=== PATIENT | male | born 1940 | race African-American/Black ===

== ENCOUNTER → 2016-05-02 | Outpatient (REF) | payer MEDICARE ==
[2016-05-02 18:11] LABS: TOTAL PROTEIN 6.9 GM/DL (6.4-8.2)
[2016-05-03 11:26] LABS: ALBUMIN 3.71 GM/DL (3.29-5.55); ALBUMIN % 53.7 % (55.8-66.1); GAMMA GLOBULIN % 17.3 % (11.1-18.8)
== END ==
LOC: M LAB REF 16:51
DX: N25.81 Secondary hyperparathyroidism of renal origin (principal); D47.2 Monoclonal gammopathy

== ENCOUNTER 2016-07-31 21:58 | Emergency (ER) | payer MEDICARE ==
[~2016-07-31] VITALS: Ht 162.6 cm; Wt 69.4 kg
[2016-07-31] MEDS ORDERED: PEGSOL (22:24)
[2016-07-31] MEDS ORDERED: METO25TA74 (22:24)
[2016-07-31] MEDS ORDERED: PRED20TA (22:24)
[2016-07-31] MEDS ORDERED: AMLO5TAB2 (22:24)
[2016-07-31] MEDS ORDERED: CLON-412 (22:24)
[2016-07-31] MEDS ORDERED: HYDR10TAB (22:24)
[2016-07-31] MEDS ORDERED: HYDR-4266 (22:24)
[2016-07-31] MEDS ORDERED: RANI150T (22:24)
[2016-07-31] MEDS ORDERED: SPIR25TA2 (22:24)
[2016-07-31] MEDS ORDERED: ISOS60TA2 (22:24)
[2016-07-31] MEDS ORDERED: ATOR40TA (22:24)
[2016-07-31] MEDS ORDERED: hydrALAZINE INJ 20 MG/ML VIAL IV ONE (23:00)
[2016-07-31 23:07] LABS: BASO % 0.4 % (0.0-1.0); EOS # 0.2 K/mm3 (0.0-0.50); EOS % 2.2 % (0.0-3.0); LARGE UNSTAINED CELL # 0.3 K/mm3 (0.0-0.4); LYMPH # 2.8 K/mm3 (1.5-4.5); LYMPH % 25.3 % (24.0-44.0); MEAN CORPUSCULAR HEMOGLOBIN 31.2 pg (27.0-33.0); MEAN CORPUSCULAR HGB CONC 33.3 g/dl (32.0-36.5); MEAN CORPUSCULAR VOLUME 93.5 fl (80.0-96.0); MONO # 1.2 K/mm3 (0.0-0.8); MONO % 11.8 % (0.0-5.0); NEUTROPHILS # 5.6 K/mm3 (1.8-7.7); NEUTROPHILS % 57.2 % (36.0-66.0); PLATELET COUNT, AUTOMATED 185 k/mm3 (150-450); WHITE BLOOD COUNT 9.8 K/mm3 (4.0-10.0)
[2016-07-31 23:41] LABS: ANION GAP 6 MEQ/L (8-16); BLOOD UREA NITROGEN 48 MG/DL (7-18); CALCIUM LEVEL 8.3 MG/DL (8.8-10.2); CARBON DIOXIDE LEVEL 27 MEQ/L (21-32); CHLORIDE LEVEL 107 MEQ/L (98-107); CREATININE FOR GFR 2.96 MG/DL (0.70-1.30); GLOMERULAR FILTRATION RATE 22.2 (>42); GLUCOSE, FASTING 97 MG/DL (83-110); POTASSIUM SERUM 4.5 MEQ/L (3.5-5.1); SODIUM LEVEL 140 MEQ/L (136-145)
[2016-08-01 01:55] VITALS: BP 174/79
--- NOTE | 2016-08-01 21:01 | ECGEPIP ---
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
== END 2016-08-01 01:59 | disposition home or self-care (01) ==
LOC: M ED 23:33
DX: I10 Essential (primary) hypertension (principal); I25.10 Atherosclerotic heart disease of native coronary artery without angina pectoris; N28.9 Disorder of kidney and ureter, unspecified; Z79.899 Other long term (current) drug therapy

== ENCOUNTER → 2016-09-27 | Outpatient (CLI) | payer MEDICARE ==
[~2016-09-27] VITALS: Ht 162.6 cm; Wt 68.5 kg
[~2016-09-27] MED LIST: AMLO5TAB2 PO; ATOR40TA75 PO; CLON-412 PO; HYDR-3910 PO; HYDR10TAB; ISOS60TA2 PO; METO1TAB32 PO; NS 1,000 ML IV ONE; PEGSOL; PRED20TA; PROPOFOL 200 MG/20 ML VIAL As Ordered ONE; RANI150T PO; SPIR25TA2
--- NOTE | 2016-09-27 08:36 | ROOR ---
Patient Name: Geena Cherry Procedure Date: 09/27/2016 8:12 AM Date of : 1940 Age: 75 Room: [facility] Gender: Male Note Status: Finalized Procedure: Colonoscopy Indications: High risk colon cancer surveillance: Personal history of colonic polyps, Last colonoscopy: June 2013 Providers: Vladimir LONG MD Referring MD: BERNY ELIZALDE JR, MD Requesting Provider: Medicines: Monitored Anesthesia Care Complications: No immediate complications. Procedure: Pre-Anesthesia Assessment: - The heart rate, respiratory rate, oxygen saturations, blood pressure, adequacy of pulmonary ventilation, and response to care were monitored throughout the procedure. The Colonoscope was introduced through the anus and advanced to the cecum, identified by appendiceal orifice and ileocecal valve. The colonoscopy was performed without difficulty. The patient tolerated the procedure well. The quality of the bowel preparation was fair. Findings: The perianal and digital rectal examinations were normal. Multiple small and large-mouthed diverticula were found in the sigmoid colon. There was narrowing of the colon in association with the diverticular opening. Internal hemorrhoids were found during retroflexion. The hemorrhoids were medium-sized. (EXAM: Complete, PREP: Suboptimal) Impression: - (EXAM: Complete, PREP: Suboptimal/fair) - Moderate diverticulosis in the sigmoid colon. - Internal hemorrhoids. - Colon exam was otherwise normal. - No specimens collected. Recommendation: - Repeat colonoscopy in 5 years for adenoma surveillance. Vladimir Long MD Vladimir OLNG MD 09/27/2016 8:35:56 AM This report has been signed electronically. Number of Addenda: 0 Note Initiated On: 09/27/2016 8:12 AM Estimated Blood Loss: Estimated blood loss: none.
[2016-09-27 09:00] VITALS: BP 154/74
== END | disposition home or self-care (01) ==
LOC: M OPP 07:16
PROVIDERS: ATTEND Internal Medicine Gastroenterology
DX: Z12.11 Encounter for screening for malignant neoplasm of colon (principal); K57.30 Diverticulosis of large intestine without perforation or abscess without bleeding; K64.8 Other hemorrhoids; Z86.010 Personal history of colon polyps; I12.9 Hypertensive chronic kidney disease with stage 1 through stage 4 chronic kidney disease, or unspecified chronic kidney disease; E78.5 Hyperlipidemia, unspecified; R12 Heartburn; K21.9 Gastro-esophageal reflux disease without esophagitis; M19.90 Unspecified osteoarthritis, unspecified site; M54.9 Dorsalgia, unspecified; J45.909 Unspecified asthma, uncomplicated; N18.4 Chronic kidney disease, stage 4 (severe); Z95.1 Presence of aortocoronary bypass graft; Z87.891 Personal history of nicotine dependence; Z79.899 Other long term (current) drug therapy; Z79.82 Long term (current) use of aspirin; Z80.9 Family history of malignant neoplasm, unspecified

== ENCOUNTER → 2017-04-21 | Outpatient (REF) | payer MEDICARE | LOC: M LAB REF 17:05 | DX: R31.29 Other microscopic hematuria (principal) | CPT/HCPCS: 88108 ==

== ENCOUNTER → 2017-05-22 | Outpatient (REF) | payer MEDICARE ==
[2017-05-22 19:45] LABS: URIC ACID 12.2 MG/DL (3.5-7.2)
== END ==
LOC: M LAB REF 17:22
DX: M10.9 Gout, unspecified (principal)
CPT/HCPCS: 84550

== ENCOUNTER → 2017-09-18 | Outpatient (REF) | payer MEDICARE ==
[2017-09-18 18:38] LABS: PTH INTACT 35.9 PG/ML (18.5-88.0)
== END ==
LOC: M LAB REF 18:03
DX: N25.81 Secondary hyperparathyroidism of renal origin (principal)
CPT/HCPCS: 83970

== ENCOUNTER 2017-09-21 07:12 | Day surgery (SDC) | payer MEDICARE ==
[2017-09-18] MEDS: POVIDONE-IODINE 5% OPHTH PREP SOL 30ML As Ordered (08:53)
[2017-09-21] MEDS ORDERED: MIDAZOLAM INJ 2 MG/2 ML VIAL (J2250) As Ordered (07:18)
[2017-09-21] MEDS ORDERED: LR 1,000 ML IV (07:30)
[2017-09-21] MEDS: OFLOXACIN 0.3 % (OCUFLOX) OPTH SOL 5ML OS (08:25)
[2017-09-21] MEDS: PHENYLEPHRINE 2.5% OPHTH SOL 2ML OS (08:25)
[2017-09-21] MEDS: PROPARACAINE 0.5% OPHTH SOL 15ML OS (08:25)
[2017-09-21] MEDS: TROPICAMIDE 1% OPHTH SOLN 2ML OS (08:25)
[2017-09-21] MEDS: BALANCED SALT IRRIGATION SOLUTION 500ML BAG (FOR OR EYE MACHINE) As Ordered (08:53)
[2017-09-21] MEDS: DUOVISC (0.50ML VISCOAT/0.55ML PROVISC) OPHTH KIT As Ordered (08:54)
[2017-09-21] MEDS: LIDOCAINE 0.75%/EPINEPHRINE 0.025% IN BSS 1ML SYR INTRACAMERAL (OR ONLY) As Ordered (08:54)
[2017-09-21] MEDS: CEFUROXIME 1MG/0.1ML INTRACAMERAL INJ As Ordered (08:54)
== END 2017-09-21 10:12 | disposition home or self-care (01) ==
LOC: M SDC 07:12
DX: H25.12 Age-related nuclear cataract, left eye (principal); I12.9 Hypertensive chronic kidney disease with stage 1 through stage 4 chronic kidney disease, or unspecified chronic kidney disease; I25.10 Atherosclerotic heart disease of native coronary artery without angina pectoris; E78.5 Hyperlipidemia, unspecified; M12.9 Arthropathy, unspecified; M10.9 Gout, unspecified; N18.4 Chronic kidney disease, stage 4 (severe); Z79.899 Other long term (current) drug therapy; Z87.891 Personal history of nicotine dependence; Z96.651 Presence of right artificial knee joint
CPT/HCPCS: 66984

== ENCOUNTER → 2018-01-08 | Outpatient (REF) | payer MEDICARE ==
[2018-01-08 13:38] LABS: URIC ACID 5.7 MG/DL (3.5-7.2)
== END ==
LOC: M LAB REF 12:37
DX: M10.9 Gout, unspecified (principal)
CPT/HCPCS: 84550

== ENCOUNTER → 2018-02-13 | Outpatient (REF) | payer MEDICARE ==
[2018-02-13 13:18] LABS: URIC ACID 5.3 MG/DL (3.5-7.2)
== END ==
LOC: M LAB REF 12:15
DX: M10.9 Gout, unspecified (principal)
CPT/HCPCS: 84550

== ENCOUNTER → 2018-05-18 | Outpatient (REF) | payer MEDICARE ==
[~2018-05-18] MED LIST changes: -AMLO5TAB2 PO; +AMLO5TAB6 PO; +ASPI1TAB PO; +CRAN450T4 PO; -NS 1,000 ML IV ONE; -PROPOFOL 200 MG/20 ML VIAL As Ordered ONE; +SPIR-10; -SPIR25TA2; +VITA200016 PO
== END ==
LOC: M LAB REF 12:20
PROVIDERS: ATTEND Internal Medicine
DX: M10.341 Gout due to renal impairment, right hand (principal)

== ENCOUNTER → 2018-05-31 | Outpatient (REF) | payer MEDICARE ==
[2018-05-31 18:53] LABS: C REACTIVE PROTEIN QUANTITATIV < 0.30 MG/DL (0.00-0.30); RHEUMATOID FACTOR QUANT 17.7 IU/ML (<15.0); URIC ACID 5.2 MG/DL (3.5-7.2)
[2018-05-31 19:20] LABS: BASO % 0.4 % (0.0-1.0); EOS # 0.1 10^3/uL (0.0-0.50); EOS % 1.1 % (0.0-3.0); HEMATOCRIT 39.8 % (42.0-52.0); HEMOGLOBIN 12.7 g/dl (13.5-17.5); LYMPH # 3.1 10^3/uL (1.5-4.5); LYMPH % 27.3 % (24.0-44.0); MEAN CORPUSCULAR HEMOGLOBIN 30.7 pg (27.0-33.0); MEAN CORPUSCULAR HGB CONC 31.9 g/dl (32.0-36.5); MEAN CORPUSCULAR VOLUME 96.1 fl (80.0-96.0); MONO # 1.4 10^3/uL (0.0-0.8); MONO % 12.8 % (0.0-5.0); NEUTROPHILS # 6.5 10^3/uL (1.8-7.7); NEUTROPHILS % 58.1 % (36.0-66.0); PLATELET COUNT, AUTOMATED 184 10^3/uL (150-450); RED BLOOD COUNT 4.14 10^6/uL (4.30-6.10); WHITE BLOOD COUNT 11.2 10^3/uL (4.0-10.0)
[2018-05-31 22:03] LABS: ERYTHROCYTE SEDIMENTATION RATE 7 mm/hr (0-20)
[2018-06-05 00:09] LABS: Lyme Disease IgG Ab 18 kDa Ban Present (.); Lyme Disease IgG Ab 23 kDa Ban Absent (.); Lyme Disease IgG Ab 28 kDa Ban Absent (.); Lyme Disease IgG Ab 30 kDa Ban Absent (.); Lyme Disease IgG Ab 39 kDa Ban Absent (.); Lyme Disease IgG Ab 41 kDa Ban Absent (.); Lyme Disease IgG Ab 45 kDa Ban Absent (.); Lyme Disease IgG Ab 58 kDa Ban Absent (.); Lyme Disease IgG Ab 66 kDa Ban Absent (.); Lyme Disease IgG Ab 93 kDa Ban Absent (.); Lyme Disease IgG West Blot Int Negative (.); Lyme Disease IgG/IgM Antibodie 1.94 ISR (0.00-0.90); Lyme Disease IgM Ab 23 kDa Ban Absent (.); Lyme Disease IgM Ab 39 kDa Ban Present (.); Lyme Disease IgM Ab 41 kDa Ban Absent (.); Lyme Disease IgM Ab Quantitati 1.35 index (0.00-0.79); Lyme Disease IgM West Blot Int Negative (.)
== END ==
LOC: M LABDRAW1 16:51
PROVIDERS: ATTEND Physician Assistant
DX: M79.644 Pain in right finger(s) (principal)

== ENCOUNTER → 2018-09-25 | Outpatient (REF) | payer MEDICARE ==
[~2018-09-25] MED LIST changes: -ASPI1TAB PO; +ASPI81TA26 PO
== END ==
LOC: M LAB REF 13:11
PROVIDERS: ATTEND Internal Medicine
DX: M10.341 Gout due to renal impairment, right hand (principal)

== ENCOUNTER → 2019-09-28 | Outpatient (CLI) | payer MEDICARE ==
[~2019-09-28] MED LIST changes: +AMLO1TAB24 PO; -AMLO5TAB6 PO
== END ==
LOC: M LABSMTC 09:20
PROVIDERS: ATTEND Ophthalmology
DX: Z11.59 Encounter for screening for other viral diseases (principal)
CPT/HCPCS: C9803; U0003

== ENCOUNTER → 2020-09-09 | Outpatient (REF) | payer MEDICARE ==
[~2020-09-09] MED LIST changes: +ISOS1TAB36 PO; -ISOS60TA2 PO
[2020-09-09 14:46] LABS: IMMUNOGLOBULIN G 1200 MG/DL (681-1648); TOTAL PROTEIN 6.7 GM/DL (6.4-8.2)
[2020-09-10 11:14] LABS: ALBUMIN 3.64 GM/DL (3.29-5.55); ALBUMIN % 54.3 % (55.8-66.1); ALPHA-1-GLOBULIN % 4.8 % (2.9-4.9); ALPHA-1-GLOBULINS 0.32 GM/DL (0.17-0.41); ALPHA-2-GLOBULINS % 10.7 % (7.1-11.8); BETA-1-GLOBULINS % 6.4 % (4.7-7.2); BETA-2-GLOBULINS % 6.6 % (3.2-6.5); GAMMA GLOBULIN % 17.2 % (11.1-18.8)
[2020-09-10 11:15] LABS: ALPHA-2-GLOBULINS 0.72 GM/DL (0.42-0.99); BETA-1-GLOBULINS 0.43 GM/DL (0.28-0.60); BETA-2-GLOBULINS 0.44 GM/DL (0.19-0.55); GAMMA GLOBULINS 1.15 GM/DL (0.65-1.58)
== END ==
LOC: M LAB REF 12:45
PROVIDERS: ATTEND Internal Medicine
DX: D47.2 Monoclonal gammopathy (principal)

== ENCOUNTER → 2021-03-03 | Outpatient (REF) | payer MEDICARE ==
[2021-03-03 18:48] LABS: IMMUNOGLOBULIN G 1280 MG/DL (681-1648)
[2021-03-05 11:20] LABS: ALBUMIN 3.65 GM/DL (3.29-5.55); ALBUMIN % 52.1 % (55.8-66.1); ALPHA-1-GLOBULIN % 4.3 % (2.9-4.9); ALPHA-2-GLOBULINS 0.74 GM/DL (0.42-0.99); ALPHA-2-GLOBULINS % 10.6 % (7.1-11.8); BETA-1-GLOBULINS 0.45 GM/DL (0.28-0.60); BETA-1-GLOBULINS % 6.4 % (4.7-7.2); BETA-2-GLOBULINS % 7.1 % (3.2-6.5); GAMMA GLOBULIN % 19.5 % (11.1-18.8); GAMMA GLOBULINS 1.37 GM/DL (0.65-1.58)
[2021-03-05 11:34] LABS: IMMUNOTYPING SERUM IGG ABNORMAL (NORMAL); IMMUNOTYPING SERUM LAMBDA ABNORMAL (NORMAL)
== END ==
LOC: M LAB REF 16:39
PROVIDERS: ATTEND Internal Medicine
DX: D47.2 Monoclonal gammopathy (principal)

== ENCOUNTER → 2021-09-07 | Outpatient (REF) | payer MEDICARE ==
[2021-09-07 17:28] LABS: IMMUNOGLOBULIN G 1320 MG/DL (681-1648); TOTAL PROTEIN 7.2 GM/DL (6.4-8.2)
[2021-09-10 12:46] LABS: ALBUMIN 3.72 GM/DL (3.29-5.55); ALBUMIN % 51.6 % (55.8-66.1); ALPHA-1-GLOBULIN % 4.8 % (2.9-4.9); ALPHA-1-GLOBULINS 0.35 GM/DL (0.17-0.41); ALPHA-2-GLOBULINS 0.78 GM/DL (0.42-0.99); ALPHA-2-GLOBULINS % 10.8 % (7.1-11.8); BETA-1-GLOBULINS 0.48 GM/DL (0.28-0.60); BETA-1-GLOBULINS % 6.6 % (4.7-7.2); BETA-2-GLOBULINS 0.49 GM/DL (0.19-0.55); BETA-2-GLOBULINS % 6.8 % (3.2-6.5); GAMMA GLOBULIN % 19.4 % (11.1-18.8)
[2021-09-10 13:03] LABS: IMMUNOTYPING SERUM IGG ABNORMAL (NORMAL); IMMUNOTYPING SERUM LAMBDA ABNORMAL (NORMAL)
== END ==
LOC: M LAB REF 16:28
PROVIDERS: ATTEND Internal Medicine
DX: D47.2 Monoclonal gammopathy (principal)

== ENCOUNTER → 2022-01-10 | Outpatient (REF) | payer MEDICARE ==
[2022-01-10 19:13] LABS: IMMUNOGLOBULIN G 1360 MG/DL (681-1648)
[2022-01-12 07:57] LABS: ALBUMIN % 48.5 % (55.8-66.1); ALPHA-1-GLOBULINS 0.35 GM/DL (0.17-0.41); ALPHA-2-GLOBULINS 0.75 GM/DL (0.42-0.99); ALPHA-2-GLOBULINS % 10.7 % (7.1-11.8); BETA-1-GLOBULINS 0.46 GM/DL (0.28-0.60); BETA-1-GLOBULINS % 6.5 % (4.7-7.2); BETA-2-GLOBULINS % 7.2 % (3.2-6.5); GAMMA GLOBULIN % 22.1 % (11.1-18.8); GAMMA GLOBULINS 1.55 GM/DL (0.65-1.58)
[2022-01-14 11:42] LABS: IMMUNOTYPING SERUM IGG ABNORMAL (NORMAL); IMMUNOTYPING SERUM LAMBDA ABNORMAL (NORMAL)
== END ==
LOC: M LAB REF 16:57
PROVIDERS: ATTEND Internal Medicine
DX: D47.2 Monoclonal gammopathy (principal)

== ENCOUNTER → 2022-08-23 | Outpatient (REF) | payer MEDICARE ==
[2022-08-23 18:45] LABS: IMMUNOGLOBULIN G 1584 MG/DL (650-1600); IMMUNOGLOBULIN M 136.3 MG/DL (50-300)
[2022-08-23 18:48] LABS: IMMUNOGLOBULIN A > 540.0 MG/DL (40-350)
== END ==
LOC: M LAB REF 17:54
PROVIDERS: ATTEND Internal Medicine
DX: N18.4 Chronic kidney disease, stage 4 (severe) (principal); D63.1 Anemia in chronic kidney disease

== ENCOUNTER → 2022-11-16 | Outpatient (REF) | payer MEDICARE ==
[~2022-11-16] MED LIST changes: +AMOX875T2 PO; +ASPI-161 PO; +CHLO25TA PO; +CLONI1TA PO; +CRAN400C PO; +FAMO40TA3 PO; +FEBU40TA4 PO; +PANT40IN4 IV; +POTA-149 PO
[2022-11-16 12:53] LABS: INR 1.11
== END ==
LOC: M LAB REF 12:07
PROVIDERS: ATTEND Internal Medicine
DX: K71.0 Toxic liver disease with cholestasis (principal)

== ENCOUNTER → 2022-11-23 | Outpatient (REF) | payer MEDICARE ==
[2022-11-23 17:41] LABS: INR 1.09; PROTHROMBIN TIME 13.8 SECONDS (12.5-14.5)
== END ==
LOC: M LAB REF 16:15
PROVIDERS: ATTEND Internal Medicine
DX: K71.0 Toxic liver disease with cholestasis (principal)

== ENCOUNTER → 2022-11-30 | Outpatient (REF) | payer MEDICARE ==
[2022-11-30 15:30] LABS: INR 1.12; PROTHROMBIN TIME 14.1 SECONDS (12.5-14.5)
== END ==
LOC: M LAB REF 12:35
PROVIDERS: ATTEND Internal Medicine
DX: K71.0 Toxic liver disease with cholestasis (principal)

== ENCOUNTER → 2022-12-06 | Outpatient (REF) | payer MEDICARE ==
[2022-12-06 18:59] LABS: INR 1.09; PROTHROMBIN TIME 13.8 SECONDS (12.5-14.5)
[2022-12-06 19:00] LABS: URIC ACID 3.8 MG/DL (3.7-9.2)
[2022-12-06 19:02] LABS: PHOSPHORUS LEVEL 3.9 MG/DL (2.4-5.1); PTH INTACT 16.7 PG/ML (18.5-88.0)
== END ==
LOC: M LAB REF 16:52
PROVIDERS: ATTEND Internal Medicine
DX: N18.4 Chronic kidney disease, stage 4 (severe) (principal); D63.1 Anemia in chronic kidney disease; K71.0 Toxic liver disease with cholestasis

== ENCOUNTER → 2023-03-15 | Outpatient (REF) | payer MEDICARE | LOC: M LAB REF 16:39 | PROVIDERS: ATTEND Internal Medicine | DX: E79.0 Hyperuricemia without signs of inflammatory arthritis and tophaceous disease (principal) ==

== ENCOUNTER → 2023-03-29 | Outpatient (CLI) | payer MEDICARE ==
[~2023-03-29] MED LIST changes: +PROHANCE 279.3MG/ML 15ML VIAL As Ordered ONE
== END ==
LOC: M RAD 14:59
PROVIDERS: ATTEND Physician Assistant
DX: I70.1 Atherosclerosis of renal artery (principal); I70.0 Atherosclerosis of aorta; I77.811 Abdominal aortic ectasia; N26.1 Atrophy of kidney (terminal); K80.20 Calculus of gallbladder without cholecystitis without obstruction; K76.89 Other specified diseases of liver; K86.2 Cyst of pancreas
CPT/HCPCS: A9576; C8902

== ENCOUNTER → 2023-06-14 | Outpatient (REF) | payer MEDICARE ==
[~2023-06-14] MED LIST changes: -ASPI-161 PO; +ASPI-615 PO; +HYDR-161; -HYDR-3910 PO; -HYDR10TAB; +HYDR25TA87 PO; -PROHANCE 279.3MG/ML 15ML VIAL As Ordered ONE
[2023-06-14 14:41] LABS: URIC ACID 4.3 MG/DL (3.7-9.2)
[2023-06-14 14:42] LABS: PHOSPHORUS LEVEL 3.3 MG/DL (2.4-5.1)
== END ==
LOC: M LAB REF 12:44
PROVIDERS: ATTEND Internal Medicine
DX: K71.0 Toxic liver disease with cholestasis (principal); E79.0 Hyperuricemia without signs of inflammatory arthritis and tophaceous disease; N18.4 Chronic kidney disease, stage 4 (severe)

== ENCOUNTER → 2023-09-06 | Outpatient (CLI) | payer MEDICARE ==
[~2023-09-06] MED LIST changes: -CRAN400C PO; +CRANBERRY400 MG PO
== END ==
LOC: M PLAIMG 11:02
PROVIDERS: ATTEND Internal Medicine
DX: J32.8 Other chronic sinusitis (principal); J34.2 Deviated nasal septum

== ENCOUNTER → 2023-09-18 | Outpatient (REF) | payer MEDICARE ==
[2023-09-18 20:03] LABS: URIC ACID 4.2 MG/DL (3.7-9.2)
[2023-09-18 20:06] LABS: PHOSPHORUS LEVEL 3.6 MG/DL (2.4-5.1)
== END ==
LOC: M LAB REF 16:15
PROVIDERS: ATTEND Internal Medicine
DX: K71.0 Toxic liver disease with cholestasis (principal); E79.0 Hyperuricemia without signs of inflammatory arthritis and tophaceous disease

== ENCOUNTER → 2023-10-23 | Outpatient (CLI) | payer MEDICARE | LOC: M RAD 12:45 | PROVIDERS: ATTEND Internal Medicine | DX: K86.2 Cyst of pancreas (principal); K76.89 Other specified diseases of liver; K80.20 Calculus of gallbladder without cholecystitis without obstruction; N26.1 Atrophy of kidney (terminal); N28.1 Cyst of kidney, acquired; K57.90 Diverticulosis of intestine, part unspecified, without perforation or abscess without bleeding ==

== ENCOUNTER → 2024-01-23 | Outpatient (CLI) | payer MEDICARE | LOC: M RAD 09:34 | PROVIDERS: ATTEND Nurse Practitioner | DX: N17.9 Acute kidney failure, unspecified (principal) ==

== ENCOUNTER → 2024-01-23 | Outpatient (CLI) | payer MEDICARE ==
[2024-01-23 11:10] LABS: BASO # 0.1 10^3/uL (0.0-0.2); BASO % 0.5 % (0.0-1.0); EOS # 0.2 10^3/uL (0.0-0.5); EOS % 1.5 % (0.0-3.0); HEMATOCRIT 35.8 % (42.0-52.0); HEMOGLOBIN 11.4 g/dl (13.5-17.5); LYMPH # 3.5 10^3/uL (1.5-5.0); LYMPH % 26.5 % (24.0-44.0); MEAN CORPUSCULAR HEMOGLOBIN 30.1 pg (27.0-33.0); MEAN CORPUSCULAR HGB CONC 31.8 g/dl (32.0-36.5); MEAN CORPUSCULAR VOLUME 94.5 fl (80.0-96.0); MONO # 1.6 10^3/uL (0.0-0.8); MONO % 11.8 % (2.0-8.0); NEUTROPHILS # 7.9 10^3/uL (1.5-8.5); NEUTROPHILS % 59.4 % (36.0-66.0); PLATELET COUNT, AUTOMATED 235 10^3/uL (150-450); RED BLOOD COUNT 3.79 10^6/uL (4.30-6.10); WHITE BLOOD COUNT 13.2 10^3/uL (4.0-10.0)
[2024-01-23 11:19] LABS: ERYTHROCYTE SEDIMENTATION RATE 66 mm/hr (0-20)
[2024-01-23 11:34] LABS: ALBUMIN 2.7 G/DL (3.2-5.2); ALKALINE PHOSPHATASE 96 U/L (40-129); ALT/SGPT 19 U/L (7.0-40); AST/SGOT 23 U/L (<34); BILIRUBIN,TOTAL 0.4 MG/DL (0.3-1.2); BLOOD UREA NITROGEN 48 MG/DL (9-23); CALCIUM LEVEL 9.3 MG/DL (8.3-10.6); CARBON DIOXIDE LEVEL 25 MMOL/L (20-31); CHLORIDE LEVEL 106 MMOL/L (98-107); CREATININE FOR GFR 3.21 MG/DL (0.70-1.30); GLOMERULAR FILTRATION RATE 19.8 (>35); GLUCOSE, FASTING 94 MG/DL (74-106); POTASSIUM SERUM 4.6 MMOL/L (3.5-5.1); SODIUM LEVEL 139 MMOL/L (136-145); TOTAL PROTEIN 7.4 G/DL (5.7-8.2)
[2024-01-23 11:36] LABS: IMMUNOGLOBULIN G 1944 MG/DL (650-1600)
[2024-01-23 12:03] LABS: IMMUNOGLOBULIN A > 540.0 MG/DL (40-350)
== END ==
LOC: M PLALAB 09:03
PROVIDERS: ATTEND Internal Medicine Infectious Disease
DX: R05.3 Chronic cough (principal); Z79.899 Other long term (current) drug therapy

== ENCOUNTER → 2024-02-05 | Outpatient (CLI) | payer MEDICARE | LOC: M PLAIMG 09:08 | PROVIDERS: ATTEND Internal Medicine Infectious Disease | DX: R05.3 Chronic cough (principal); J47.9 Bronchiectasis, uncomplicated; I70.0 Atherosclerosis of aorta; I25.10 Atherosclerotic heart disease of native coronary artery without angina pectoris; R91.8 Other nonspecific abnormal finding of lung field; K80.20 Calculus of gallbladder without cholecystitis without obstruction; J98.09 Other diseases of bronchus, not elsewhere classified ==

== ENCOUNTER → 2024-02-20 | Outpatient (CLI) | payer MEDICARE ==
[2024-02-20 13:56] LABS: BASO # 0.1 10^3/uL (0.0-0.2); BASO % 0.4 % (0.0-1.0); EOS # 0.3 10^3/uL (0.0-0.5); EOS % 2.8 % (0.0-3.0); HEMATOCRIT 38.3 % (42.0-52.0); HEMOGLOBIN 11.9 g/dl (13.5-17.5); LYMPH # 3.8 10^3/uL (1.5-5.0); LYMPH % 32.6 % (24.0-44.0); MEAN CORPUSCULAR HEMOGLOBIN 29.2 pg (27.0-33.0); MEAN CORPUSCULAR HGB CONC 31.1 g/dl (32.0-36.5); MEAN CORPUSCULAR VOLUME 94.1 fl (80.0-96.0); MONO % 8.4 % (2.0-8.0); NEUTROPHILS # 6.5 10^3/uL (1.5-8.5); NEUTROPHILS % 55.5 % (36.0-66.0); PLATELET COUNT, AUTOMATED 199 10^3/uL (150-450); RED BLOOD COUNT 4.07 10^6/uL (4.30-6.10); WHITE BLOOD COUNT 11.7 10^3/uL (4.0-10.0)
[2024-02-20 14:05] LABS: ERYTHROCYTE SEDIMENTATION RATE 51 mm/hr (0-20)
== END ==
LOC: M PLALAB 10:02
PROVIDERS: ATTEND Internal Medicine Infectious Disease
DX: A49.8 Other bacterial infections of unspecified site (principal); N18.4 Chronic kidney disease, stage 4 (severe); J47.9 Bronchiectasis, uncomplicated

== ENCOUNTER → 2024-03-27 | Outpatient (REF) | payer MEDICARE | LOC: M LAB REF 17:12 | PROVIDERS: ATTEND Internal Medicine Pulmonary Disease | DX: J47.9 Bronchiectasis, uncomplicated (principal) ==

== ENCOUNTER → 2024-05-20 | Outpatient (REF) | payer MEDICARE | LOC: M SFHCPLAZ 12:46 | PROVIDERS: ATTEND Internal Medicine Infectious Disease | DX: R05.3 Chronic cough (principal) ==

== ENCOUNTER → 2024-05-21 | Outpatient (CLI) | payer MEDICARE | LOC: M PLAIMG 12:07 | PROVIDERS: ATTEND Internal Medicine Pulmonary Disease | DX: R91.8 Other nonspecific abnormal finding of lung field (principal); I25.10 Atherosclerotic heart disease of native coronary artery without angina pectoris; I70.0 Atherosclerosis of aorta; N26.1 Atrophy of kidney (terminal); K80.20 Calculus of gallbladder without cholecystitis without obstruction; M85.89 Other specified disorders of bone density and structure, multiple sites; J84.9 Interstitial pulmonary disease, unspecified ==

== ENCOUNTER → 2024-05-22 | Outpatient (CLI) | payer MEDICARE | LOC: M RAD 15:45 | PROVIDERS: ATTEND Internal Medicine | DX: K86.2 Cyst of pancreas (principal) ==

== ENCOUNTER → 2024-06-11 | Outpatient (REF) | payer MEDICARE | LOC: M SFHCPLAZ 17:10 | PROVIDERS: ATTEND Internal Medicine Infectious Disease | DX: J47.9 Bronchiectasis, uncomplicated (principal) ==

== ENCOUNTER → 2024-07-15 | Outpatient (REF) | payer MEDICARE ==
[2024-07-15 13:50] LABS: URIC ACID 4.2 MG/DL (3.7-9.2)
[2024-07-15 13:52] LABS: PHOSPHORUS LEVEL 3.5 MG/DL (2.4-5.1); PTH INTACT 74.8 PG/ML (18.5-88.0)
== END ==
LOC: M LAB REF 12:39
PROVIDERS: ATTEND Internal Medicine
DX: K71.0 Toxic liver disease with cholestasis (principal); E79.0 Hyperuricemia without signs of inflammatory arthritis and tophaceous disease

== ENCOUNTER 2024-07-18 12:28 | Inpatient (IN) | payer MEDICARE ==
[~2024-07-18] VITALS: Ht 157.5 cm; Wt 57.6 kg
[2024-07-18 14:25] LABS: BASO % 0.2 % (0.0-1.0); EOS # 0.1 10^3/uL (0.0-0.5); EOS % 0.4 % (0.0-3.0); HEMOGLOBIN 12.4 g/dl (13.5-17.5); LYMPH # 2.9 10^3/uL (1.5-5.0); MEAN CORPUSCULAR HEMOGLOBIN 28.6 pg (27.0-33.0); MEAN CORPUSCULAR VOLUME 92.2 fl (80.0-96.0); MONO # 2.3 10^3/uL (0.0-0.8); MONO % 13.5 % (2.0-8.0); NEUTROPHILS # 11.8 10^3/uL (1.5-8.5); NEUTROPHILS % 68.4 % (36.0-66.0); PLATELET COUNT, AUTOMATED 244 10^3/uL (150-450); RED BLOOD COUNT 4.34 10^6/uL (4.30-6.10); WHITE BLOOD COUNT 17.3 10^3/uL (4.0-10.0)
[2024-07-18 14:32] LABS: ALBUMIN 2.9 G/DL (3.2-5.2); BILIRUBIN,DIRECT 0.2 MG/DL (<0.4); BILIRUBIN,TOTAL 0.4 MG/DL (0.3-1.2); CALCIUM LEVEL 8.8 MG/DL (8.3-10.6); CREATININE FOR GFR 3.2 MG/DL (0.70-1.30); GLOMERULAR FILTRATION RATE 18.6 (>35); POTASSIUM SERUM 4.2 MMOL/L (3.5-5.1); TOTAL PROTEIN 7.8 G/DL (5.7-8.2)
[2024-07-18 14:34] LABS: THYROID STIMULATING HORMONE 1.387 uIU/ML (0.55-4.78); THYROXINE (T4) 9.6 UG/DL (4.5-10.9)
[2024-07-18] MEDS: CEFEPIME HCL 1 GM in DEXTROSE 5% (D5W) ADV/MINI-BAG 50 ML IV ONE (15:14)
[2024-07-18 15:50] LABS: PROCALCITONIN 0.23 ng/ml
[2024-07-18] MEDS ORDERED: CHLO125TA PO (17:27)
[2024-07-18] MEDS ORDERED: ALBU2.5V10 INH (17:27)
[2024-07-18] MEDS ORDERED: ACETAMINOPHEN 325 MG TAB PO PRN (17:50)
[2024-07-18] MEDS ORDERED: MOM 30ML SUSPENSION UDC PO PRN (17:50)
[2024-07-18] MEDS: LR 1,000 ML IV SCH (17:50)
[2024-07-18] MEDS ORDERED: HOME MED LIST COMPLETE! XX SCH (18:00)
[2024-07-18 19:07] LABS: C REACTIVE PROTEIN QUANTITATIV 7.46 MG/DL (<1.0)
[2024-07-18 20:00] VITALS: BP 169/73; TEMP 98.6; O2SAT 98
[2024-07-18] MEDS: cloNIDine 0.1MG TABLET PO SCH (22:19)
[2024-07-18] MEDS: **hydrALAZINE HCL** 25 MG TAB PO SCH (22:19)
[2024-07-18 23:05] VITALS: BP 141/51; TEMP 97.8; O2SAT 98
[2024-07-18] MEDS: ISOSORBIDE MON. (IMDUR) 60MG XR TAB PO SCH (23:30)
[2024-07-19 03:50] VITALS: BP 128/52; TEMP 98.4; O2SAT 98
[2024-07-19 05:53] LABS: BASO # 0.1 10^3/uL (0.0-0.2); BASO % 0.4 % (0.0-1.0); EOS # 0.4 10^3/uL (0.0-0.5); LYMPH # 3.7 10^3/uL (1.5-5.0); LYMPH % 31.7 % (24.0-44.0); MEAN CORPUSCULAR HEMOGLOBIN 29.6 pg (27.0-33.0); MEAN CORPUSCULAR HGB CONC 32.3 g/dl (32.0-36.5); MEAN CORPUSCULAR VOLUME 91.5 fl (80.0-96.0); MONO # 1.6 10^3/uL (0.0-0.8); MONO % 13.1 % (2.0-8.0); NEUTROPHILS # 6.1 10^3/uL (1.5-8.5); NEUTROPHILS % 51.6 % (36.0-66.0); PLATELET COUNT, AUTOMATED 192 10^3/uL (150-450); RED BLOOD COUNT 3.28 10^6/uL (4.30-6.10); WHITE BLOOD COUNT 11.8 10^3/uL (4.0-10.0)
[2024-07-19 05:54] LABS: HEMOGLOBIN 9.7 g/dl (13.5-17.5)
[2024-07-19 06:16] LABS: ALBUMIN 2.2 G/DL (3.2-5.2); CALCIUM LEVEL 8.5 MG/DL (8.3-10.6); CREATININE FOR GFR 3.22 MG/DL (0.70-1.30); GLOMERULAR FILTRATION RATE 18.5 (>35); MAGNESIUM LEVEL 1.9 MG/DL (1.8-2.4); PHOSPHORUS LEVEL 3.8 MG/DL (2.4-5.1); POTASSIUM SERUM 4.4 MMOL/L (3.5-5.1)
[2024-07-19 07:41] LABS: C REACTIVE PROTEIN QUANTITATIV 6.56 MG/DL (<1.0)
[2024-07-19 07:53] VITALS: BP 167/65; TEMP 98.4; O2SAT 97
[2024-07-19 08:00] VITALS: BP 133/56; TEMP 99.7; O2SAT 96
[2024-07-19] MEDS ORDERED: ISOSORBIDE MON. (IMDUR) 60MG XR TAB PO SCH (09:00)
[2024-07-19] MEDS ORDERED: PILL CUTTER 1 EACH XX ONE (10:01)
[2024-07-19] MEDS: ASPIRIN 81MG ENTERIC TABLET PO SCH (10:14)
[2024-07-19] MEDS: FEBUXOSTAT 40 MG TABLET (ULORIC) PO SCH (10:16)
[2024-07-19] MEDS: METOPROLOL SUCC *XL* 25MG TAB (TopROL *XL*) PO SCH (10:17)
[2024-07-19] MEDS: FAMOTIDINE 20 MG TAB PO SCH (10:17)
[2024-07-19] MEDS: CEFEPIME HCL 2 GM in DEXTROSE 5% (D5W) ADV/MINI-BAG 50 ML IV SCH (10:18)
[2024-07-19] MEDS: ATORVASTATIN 20 MG TAB PO SCH (10:18)
[2024-07-19 12:08] VITALS: BP 164/58; TEMP 98.8; O2SAT 98
[2024-07-19 15:36] VITALS: BP 150/64; TEMP 98.4; O2SAT 98
[2024-07-19] MEDS ORDERED: CHLORTHALIDONE 12.5MG PER 1/2 TABLET PO SCH (18:00)
[2024-07-19] MEDS ORDERED: SODIUM CHLORIDE 0.9% INJ 10 ML SYR IV PRN (18:40)
[2024-07-19] MEDS: SODIUM CHLORIDE 0.9% INJ 10 ML SYR IV SCH (18:40)
[2024-07-19] MEDS: ALBUTEROL SULFATE 2.5MG/0.5ML INH CONCENTRATE NEB SOLN NEB PRN (19:12)
[2024-07-19 19:30] VITALS: BP 131/53; TEMP 98.8; O2SAT 98
[2024-07-20] VITALS: BP 140/55; TEMP 98.6; O2SAT 97
[2024-07-20 04:26] VITALS: BP 133/57; TEMP 98.6; O2SAT 95
[2024-07-20 05:38] LABS: BASO # 0.1 10^3/uL (0.0-0.2); BASO % 0.5 % (0.0-1.0); EOS # 0.4 10^3/uL (0.0-0.5); EOS % 3.4 % (0.0-3.0); HEMATOCRIT 29.5 % (42.0-52.0); HEMOGLOBIN 9.7 g/dl (13.5-17.5); LYMPH # 4.4 10^3/uL (1.5-5.0); LYMPH % 40.6 % (24.0-44.0); MEAN CORPUSCULAR HEMOGLOBIN 29.5 pg (27.0-33.0); MEAN CORPUSCULAR HGB CONC 32.9 g/dl (32.0-36.5); MEAN CORPUSCULAR VOLUME 89.7 fl (80.0-96.0); MONO # 1.3 10^3/uL (0.0-0.8); MONO % 11.5 % (2.0-8.0); NEUTROPHILS # 4.7 10^3/uL (1.5-8.5); NEUTROPHILS % 43.7 % (36.0-66.0); PLATELET COUNT, AUTOMATED 187 10^3/uL (150-450); RED BLOOD COUNT 3.29 10^6/uL (4.30-6.10); WHITE BLOOD COUNT 10.9 10^3/uL (4.0-10.0)
[2024-07-20 06:06] LABS: ALBUMIN 2.1 G/DL (3.2-5.2); CALCIUM LEVEL 8.5 MG/DL (8.3-10.6); CREATININE FOR GFR 2.92 MG/DL (0.70-1.30); GLOMERULAR FILTRATION RATE 20.8 (>35); MAGNESIUM LEVEL 1.7 MG/DL (1.8-2.4); PHOSPHORUS LEVEL 4.5 MG/DL (2.4-5.1); POTASSIUM SERUM 4.5 MMOL/L (3.5-5.1)
[2024-07-20 08:00] VITALS: BP 137/61; TEMP 98.4; O2SAT 96
[2024-07-20] MEDS: MAG SULF 1GM/100ML (MAG RUN) 1 GM in IV 1 EA IV ONE (08:24)
[2024-07-20 11:42] VITALS: BP 153/61; TEMP 98.4; O2SAT 98
[2024-07-20 16:00] VITALS: BP 127/53; TEMP 98.8; O2SAT 98
[2024-07-20] MEDS: CHLORTHALIDONE 25 MG TAB PO SCH (17:10)
[2024-07-20 19:49] VITALS: BP 156/76; TEMP 99.1; O2SAT 99
[2024-07-21] VITALS: BP 137/71; TEMP 98.8; O2SAT 96
[2024-07-21 03:24] VITALS: BP 141/67; TEMP 98.8; O2SAT 97
[2024-07-21 05:44] LABS: BASO # 0.1 10^3/uL (0.0-0.2); BASO % 0.5 % (0.0-1.0); EOS # 0.4 10^3/uL (0.0-0.5); EOS % 3.9 % (0.0-3.0); HEMATOCRIT 32.4 % (42.0-52.0); HEMOGLOBIN 10.4 g/dl (13.5-17.5); LYMPH # 3.5 10^3/uL (1.5-5.0); LYMPH % 33.6 % (24.0-44.0); MEAN CORPUSCULAR HEMOGLOBIN 28.7 pg (27.0-33.0); MEAN CORPUSCULAR HGB CONC 32.1 g/dl (32.0-36.5); MEAN CORPUSCULAR VOLUME 89.5 fl (80.0-96.0); MONO # 1.3 10^3/uL (0.0-0.8); MONO % 12.6 % (2.0-8.0); NEUTROPHILS # 5.2 10^3/uL (1.5-8.5); NEUTROPHILS % 49.1 % (36.0-66.0); PLATELET COUNT, AUTOMATED 194 10^3/uL (150-450); RED BLOOD COUNT 3.62 10^6/uL (4.30-6.10); WHITE BLOOD COUNT 10.5 10^3/uL (4.0-10.0)
[2024-07-21 06:05] LABS: ALBUMIN 2.1 G/DL (3.2-5.2); CALCIUM LEVEL 8.7 MG/DL (8.3-10.6); CREATININE FOR GFR 3.03 MG/DL (0.70-1.30); GLOMERULAR FILTRATION RATE 19.9 (>35); PHOSPHORUS LEVEL 4.5 MG/DL (2.4-5.1); POTASSIUM SERUM 4.7 MMOL/L (3.5-5.1)
[2024-07-21 08:00] VITALS: BP 148/56; TEMP 98.2; O2SAT 95
[2024-07-21 12:00] VITALS: BP 107/72; TEMP 98.2; O2SAT 95
[2024-07-21 16:00] VITALS: BP 136/62; TEMP 98.2; O2SAT 99
[2024-07-21 20:10] VITALS: BP 119/70; TEMP 97.9; O2SAT 96
[2024-07-22 00:11] VITALS: BP 139/68; TEMP 98.4; O2SAT 97
[2024-07-22 04:54] VITALS: BP 141/91; TEMP 98.4; O2SAT 95
[2024-07-22 05:49] LABS: BASO # 0.1 10^3/uL (0.0-0.2); BASO % 0.5 % (0.0-1.0); EOS # 0.4 10^3/uL (0.0-0.5); HEMATOCRIT 34.5 % (42.0-52.0); HEMOGLOBIN 11.1 g/dl (13.5-17.5); LYMPH # 5.4 10^3/uL (1.5-5.0); LYMPH % 39.2 % (24.0-44.0); MEAN CORPUSCULAR HEMOGLOBIN 28.8 pg (27.0-33.0); MEAN CORPUSCULAR HGB CONC 32.2 g/dl (32.0-36.5); MEAN CORPUSCULAR VOLUME 89.6 fl (80.0-96.0); MONO # 1.6 10^3/uL (0.0-0.8); MONO % 11.6 % (2.0-8.0); NEUTROPHILS # 6.3 10^3/uL (1.5-8.5); NEUTROPHILS % 45.3 % (36.0-66.0); PLATELET COUNT, AUTOMATED 223 10^3/uL (150-450); RED BLOOD COUNT 3.85 10^6/uL (4.30-6.10); WHITE BLOOD COUNT 13.9 10^3/uL (4.0-10.0)
[2024-07-22 06:09] LABS: ALBUMIN 2.3 G/DL (3.2-5.2); CALCIUM LEVEL 8.9 MG/DL (8.3-10.6); CREATININE FOR GFR 3.15 MG/DL (0.70-1.30); PHOSPHORUS LEVEL 4.1 MG/DL (2.4-5.1); POTASSIUM SERUM 4.5 MMOL/L (3.5-5.1)
[2024-07-22 07:53] LABS: PROCALCITONIN 0.2 ng/ml
[2024-07-22 08:06] VITALS: BP 164/82; TEMP 99.1; O2SAT 97
[2024-07-22 12:00] VITALS: BP 126/82; TEMP 98.4; O2SAT 97
[2024-07-22 16:00] VITALS: BP 144/58; TEMP 99.1; O2SAT 96
[2024-07-22 16:26] VITALS: BP 144/58
== END 2024-07-22 18:09 | disposition home or self-care (01) | DRG 178 ==
LOC: M ED 12:28 → M ED INP 12:29 → M MSPAV 20:05 → OBSVTOIN 07-22 08:15
PROVIDERS: ADMIT Student in an Organized Health Care Education/Training Program; ATTEND Student in an Organized Health Care Education/Training Program
DX: J15.1 Pneumonia due to Pseudomonas (principal); N18.4 Chronic kidney disease, stage 4 (severe); R04.2 Hemoptysis; J47.0 Bronchiectasis with acute lower respiratory infection; J98.11 Atelectasis; Z16.23 Resistance to quinolones and fluoroquinolones; I12.9 Hypertensive chronic kidney disease with stage 1 through stage 4 chronic kidney disease, or unspecified chronic kidney disease; E78.5 Hyperlipidemia, unspecified; I25.10 Atherosclerotic heart disease of native coronary artery without angina pectoris; K21.9 Gastro-esophageal reflux disease without esophagitis; M06.9 Rheumatoid arthritis, unspecified; I1A.0 Resistant hypertension; N41.1 Chronic prostatitis; K59.09 Other constipation; K44.9 Diaphragmatic hernia without obstruction or gangrene; Z95.1 Presence of aortocoronary bypass graft; Z87.891 Personal history of nicotine dependence; Z79.82 Long term (current) use of aspirin; Z79.899 Other long term (current) drug therapy

== ENCOUNTER 2024-07-23 14:30 | Outpatient (CLI) | payer MEDICARE ==
[~2024-07-23] VITALS: Ht 157.5 cm; Wt 56.3 kg
[~2024-07-23 14:30] MED LIST changes: +ALBU2.5V10 INH; +CHLO125TA PO
[2024-07-23 14:55] VITALS: BP 153/75; O2SAT 97
[2024-07-23] MEDS: CEFEPIME HCL 2 GM in DEXTROSE 5% (D5W) ADV/MINI-BAG 50 ML IV ONE (15:05)
[2024-07-23 15:45] VITALS: BP 158/72; O2SAT 96
== END 2024-07-23 15:45 ==
LOC: M INFU 14:30
PROVIDERS: ATTEND Internal Medicine Infectious Disease
DX: J15.1 Pneumonia due to Pseudomonas (principal)
CPT/HCPCS: 96365; J0692

== ENCOUNTER 2024-07-24 15:04 | Outpatient (CLI) | payer MEDICARE ==
[~2024-07-24] VITALS: Ht 157.5 cm; Wt 56.3 kg
[2024-07-24 15:10] VITALS: BP 165/81; O2SAT 97
[2024-07-24] MEDS: CEFEPIME HCL 2 GM in DEXTROSE 5% (D5W) ADV/MINI-BAG 50 ML IV ONE (15:15)
[2024-07-24 15:50] VITALS: BP 159/75; O2SAT 98
== END 2024-07-24 15:50 | disposition home or self-care (01) ==
LOC: M INFU 15:04
PROVIDERS: ATTEND Internal Medicine Infectious Disease
DX: J15.1 Pneumonia due to Pseudomonas (principal)
CPT/HCPCS: 96365; J0692

== ENCOUNTER 2024-07-25 14:45 | Outpatient (CLI) | payer MEDICARE ==
[2024-07-25] MEDS: CEFEPIME HCL 2 GM in DEXTROSE 5% (D5W) ADV/MINI-BAG 50 ML IV ONE (14:40)
[2024-07-25 14:42] VITALS: BP 161/71; O2SAT 95
== END 2024-07-25 15:16 | disposition home or self-care (01) ==
LOC: M INFU 14:45
PROVIDERS: ATTEND Internal Medicine Infectious Disease
DX: J15.1 Pneumonia due to Pseudomonas (principal)
CPT/HCPCS: 96365; J0692

== ENCOUNTER 2024-07-26 15:20 | Outpatient (CLI) | payer MEDICARE ==
[2024-07-26 15:30] VITALS: BP 187/84; O2SAT 97
[2024-07-26] MEDS: CEFEPIME HCL 2 GM in DEXTROSE 5% (D5W) ADV/MINI-BAG 50 ML IV ONE (15:30)
[2024-07-26 16:10] VITALS: BP 150/70; O2SAT 100
== END 2024-07-26 16:12 ==
LOC: M INFU 15:20
PROVIDERS: ATTEND Internal Medicine Infectious Disease
DX: J15.1 Pneumonia due to Pseudomonas (principal)
CPT/HCPCS: 96365; J0692

== ENCOUNTER 2024-07-27 12:35 | Outpatient (CLI) | payer MEDICARE ==
[~2024-07-27] VITALS: Ht 157.5 cm; Wt 56.3 kg
[2024-07-27] MEDS: CEFEPIME HCL 2 GM in DEXTROSE 5% (D5W) ADV/MINI-BAG 50 ML IV ONE (12:52)
[2024-07-27 13:21] VITALS: BP 136/63; O2SAT 98
== END 2024-07-27 13:40 | disposition home or self-care (01) ==
LOC: M INFU 12:35
PROVIDERS: ATTEND Internal Medicine Infectious Disease
DX: J15.1 Pneumonia due to Pseudomonas (principal)
CPT/HCPCS: 96365; J0692

== ENCOUNTER → 2024-09-19 | Outpatient (CLI) | payer MEDICARE | LOC: M RAD 11:12 | PROVIDERS: ATTEND Urology | DX: N28.1 Cyst of kidney, acquired (principal) ==

== ENCOUNTER → 2024-09-30 | Outpatient (REF) | payer MEDICARE | LOC: M SFHCPLAZ 15:01 | PROVIDERS: ATTEND Internal Medicine Infectious Disease | DX: J47.9 Bronchiectasis, uncomplicated (principal) ==

== ENCOUNTER → 2024-11-12 | Outpatient (REF) | payer MEDICARE | LOC: M LAB REF 16:58 | PROVIDERS: ATTEND Internal Medicine Pulmonary Disease | DX: J47.9 Bronchiectasis, uncomplicated (principal) ==

== ENCOUNTER → 2024-12-05 | Outpatient (REF) | payer MEDICARE ==
[~2024-12-05] MED LIST changes: +SODI325T9 PO
== END ==
LOC: M LAB REF 13:05
PROVIDERS: ATTEND Internal Medicine Infectious Disease
DX: A49.8 Other bacterial infections of unspecified site (principal)

== ENCOUNTER 2024-12-06 14:07 | Inpatient (IN) | payer MEDICARE ==
[~2024-12-06] VITALS: Ht 160 cm; Wt 57.4 kg
[~2024-12-06 14:07] MED LIST changes: -SODI325T9 PO
[2024-12-06] MEDS ORDERED: SODI325T9 PO (14:54)
[2024-12-06] MEDS: PIPERACILLIN/TAZOBACTAM SOD 3.375 GM in DEXTROSE 5% (D5W) ADV/MINI-BAG 50 ML IV ONE (19:01)
[2024-12-06] MEDS ORDERED: HOME MED LIST COMPLETE! XX SCH ×2 (19:40)
[2024-12-06 21:01] LABS: BASO # 0.1 10^3/uL (0.0-0.2); BASO % 0.3 % (0.0-1.0); EOS # 0.1 10^3/uL (0.0-0.5); EOS % 0.7 % (0.0-3.0); LYMPH # 5.2 10^3/uL (1.5-5.0); LYMPH % 33.5 % (24.0-44.0); MONO # 1.4 10^3/uL (0.0-0.8); MONO % 8.9 % (2.0-8.0); NEUTROPHILS # 8.7 10^3/uL (1.5-8.5); NEUTROPHILS % 56.4 % (36.0-66.0); PLATELET COUNT, AUTOMATED 175 10^3/uL (150-450)
[2024-12-06 21:33] LABS: ALT/SGPT 18.0 U/L (7.0-40); AST/SGOT 27.0 U/L (<34); CALCIUM LEVEL 9.1 MG/DL (8.3-10.6); CARBON DIOXIDE LEVEL 21.0 MMOL/L (20-31); CHLORIDE LEVEL 108.0 MMOL/L (98-107); CREATININE FOR GFR 3.39 MG/DL (0.70-1.30); GLOMERULAR FILTRATION RATE 17.4 (>35); POTASSIUM SERUM 4.1 MMOL/L (3.5-5.1); SODIUM LEVEL 140.0 MMOL/L (136-145)
[2024-12-06 21:56] LABS: C REACTIVE PROTEIN QUANTITATIV 2.79 MG/DL (<1.0)
[2024-12-06] MEDS ORDERED: ACETAMINOPHEN 325 MG TAB PO PRN (22:30)
[2024-12-06 22:33] LABS: MAGNESIUM LEVEL 2.0 MG/DL (1.8-2.4); PHOSPHORUS LEVEL 2.7 MG/DL (2.4-5.1)
[2024-12-06] MEDS: POTASSIUM CHLORIDE 10MEQ SR TABLET PO SCH (23:41)
[2024-12-06] MEDS: **hydrALAZINE HCL** 25 MG TAB PO SCH (23:41)
[2024-12-06] MEDS: ISOSORBIDE MONONITRATE 60 MG XR TAB PO SCH (23:41)
[2024-12-07] MEDS: guaiFENesin ER TABLET 600 MG TAB PO SCH (02:30)
[2024-12-07] MEDS: PIPERACILLIN/TAZOBACTAM SOD 2.25 GM in DEXTROSE 5% (D5W) ADV/MINI-BAG 50 ML IV SCH (03:19)
[2024-12-07 07:38] LABS: BASO # 0.0 10^3/uL (0.0-0.2); BASO % 0.5 % (0.0-1.0); EOS # 0.2 10^3/uL (0.0-0.5); EOS % 1.8 % (0.0-3.0); LYMPH # 2.6 10^3/uL (1.5-5.0); LYMPH % 30.3 % (24.0-44.0); MONO # 1.1 10^3/uL (0.0-0.8); MONO % 12.2 % (2.0-8.0); NEUTROPHILS # 4.8 10^3/uL (1.5-8.5); NEUTROPHILS % 55.0 % (36.0-66.0); PLATELET COUNT, AUTOMATED 147 10^3/uL (150-450)
[2024-12-07 08:02] LABS: ALT/SGPT 16.0 U/L (7.0-40); AST/SGOT 24.0 U/L (<34); CALCIUM LEVEL 8.5 MG/DL (8.3-10.6); CARBON DIOXIDE LEVEL 22.0 MMOL/L (20-31); CHLORIDE LEVEL 110.0 MMOL/L (98-107); CREATININE FOR GFR 3.45 MG/DL (0.70-1.30); GLOMERULAR FILTRATION RATE 17.0 (>35); POTASSIUM SERUM 4.3 MMOL/L (3.5-5.1); SODIUM LEVEL 137.0 MMOL/L (136-145)
[2024-12-07 08:33] LABS: C REACTIVE PROTEIN QUANTITATIV 3.28 MG/DL (<1.0)
[2024-12-07] MEDS: DOCUSATE SODIUM 100 MG CAPSULE PO SCH (09:05)
[2024-12-07] MEDS: HEPARIN SOD 5000 UNITS/ML 1 ML VIAL/SYRINGE SC SCH (09:08)
[2024-12-07] MEDS: CHLORTHALIDONE 25 MG TAB PO SCH (09:32)
[2024-12-07] MEDS: ATORVASTATIN 20 MG TAB PO SCH (09:33)
[2024-12-07] MEDS: ASPIRIN 81 MG ENTERIC TABLET PO SCH (09:34)
[2024-12-07] MEDS: FAMOTIDINE 20 MG TAB PO SCH (09:34)
[2024-12-07] MEDS: SODIUM BICARBONATE 325 MG TAB PO SCH (09:34)
[2024-12-07] MEDS: METOPROLOL SUCC. 25 MG *XL* TAB PO SCH (09:35)
[2024-12-07] MEDS: FEBUXOSTAT 40 MG TABLET PO SCH (10:08)
[2024-12-07] MEDS ORDERED: MEROPENEM 2 GM in SODIUM CHLORIDE 0.9% INJ 100 ML IV SCH (14:45)
[2024-12-07] MEDS: NS (Normal Saline) 0.9% 1,000 ML IV SCH (15:59)
[2024-12-07] MEDS ORDERED: NS (Normal Saline) 0.9% 1,000 ML IV SCH (16:20)
[2024-12-07 16:30] VITALS: BP 155/62; TEMP 97; O2SAT 99
[2024-12-07] MEDS: MEROPENEM 500 MG in IV 1 EA IV SCH (17:23)
[2024-12-07 20:26] VITALS: BP 146/62; TEMP 97.2; O2SAT 99
[2024-12-08 00:53] VITALS: BP 138/61
[2024-12-08 04:05] VITALS: BP 138/60; TEMP 97.5; O2SAT 96
[2024-12-08 07:32] LABS: BASO # 0.0 10^3/uL (0.0-0.2); BASO % 0.4 % (0.0-1.0); EOS # 0.2 10^3/uL (0.0-0.5); EOS % 2.7 % (0.0-3.0); LYMPH # 2.2 10^3/uL (1.5-5.0); LYMPH % 25.9 % (24.0-44.0); MONO # 1.0 10^3/uL (0.0-0.8); MONO % 11.5 % (2.0-8.0); NEUTROPHILS # 5.1 10^3/uL (1.5-8.5); NEUTROPHILS % 59.3 % (36.0-66.0); PLATELET COUNT, AUTOMATED 141 10^3/uL (150-450)
[2024-12-08 08:03] LABS: C REACTIVE PROTEIN QUANTITATIV 2.4 MG/DL (<1.0); CALCIUM LEVEL 7.8 MG/DL (8.3-10.6); CARBON DIOXIDE LEVEL 20.0 MMOL/L (20-31); CHLORIDE LEVEL 111.0 MMOL/L (98-107); CREATININE FOR GFR 3.16 MG/DL (0.70-1.30); GLOMERULAR FILTRATION RATE 18.9 (>35); MAGNESIUM LEVEL 1.9 MG/DL (1.8-2.4); POTASSIUM SERUM 4.2 MMOL/L (3.5-5.1); SODIUM LEVEL 140.0 MMOL/L (136-145)
[2024-12-08 08:04] LABS: IRON (FE) 42.0 UG/DL (65-175); PERCENT SATURATION 19.9 % (19.7-50.0)
[2024-12-08 12:00] VITALS: BP 121/60; TEMP 97.5; O2SAT 98
[2024-12-08 20:26] VITALS: BP 148/61; TEMP 97.7; O2SAT 96
[2024-12-08 23:57] VITALS: O2SAT 97
[2024-12-09 04:12] VITALS: BP 128/49; TEMP 97.7; O2SAT 97
[2024-12-09 06:35] LABS: BASO # 0.0 10^3/uL (0.0-0.2); BASO % 0.4 % (0.0-1.0); EOS # 0.2 10^3/uL (0.0-0.5); EOS % 2.2 % (0.0-3.0); LYMPH # 3.2 10^3/uL (1.5-5.0); LYMPH % 37.1 % (24.0-44.0); MONO # 1.2 10^3/uL (0.0-0.8); MONO % 13.5 % (2.0-8.0); NEUTROPHILS # 4.0 10^3/uL (1.5-8.5); NEUTROPHILS % 46.7 % (36.0-66.0); PLATELET COUNT, AUTOMATED 140 10^3/uL (150-450)
[2024-12-09 07:01] LABS: C REACTIVE PROTEIN QUANTITATIV 1.5 MG/DL (<1.0); CALCIUM LEVEL 7.7 MG/DL (8.3-10.6); CARBON DIOXIDE LEVEL 22.0 MMOL/L (20-31); CHLORIDE LEVEL 110.0 MMOL/L (98-107); CREATININE FOR GFR 3.19 MG/DL (0.70-1.30); GLOMERULAR FILTRATION RATE 18.7 (>35); MAGNESIUM LEVEL 1.8 MG/DL (1.8-2.4); POTASSIUM SERUM 4.4 MMOL/L (3.5-5.1); SODIUM LEVEL 140.0 MMOL/L (136-145)
[2024-12-09 07:30] VITALS: BP 121/63; TEMP 97.7; O2SAT 97
[2024-12-09] MEDS: DARBEPOETIN 100 MCG/0.5 ML *NON-DIALYSIS* SYRINGE SC SCH (11:31)
[2024-12-09] MEDS ORDERED: SODIUM CHLORIDE 0.9% INJ 10 ML SYR IV PRN (17:35)
[2024-12-09] MEDS: SODIUM CHLORIDE 0.9% INJ 10 ML SYR IV SCH (18:00)
[2024-12-09 20:06] VITALS: BP 152/78; TEMP 97.5; O2SAT 99
[2024-12-10 03:19] VITALS: BP 121/52; TEMP 97.5; O2SAT 98
[2024-12-10 09:14] LABS: BASO # 0.0 10^3/uL (0.0-0.2); BASO % 0.3 % (0.0-1.0); EOS # 0.3 10^3/uL (0.0-0.5); EOS % 2.7 % (0.0-3.0); LYMPH # 2.6 10^3/uL (1.5-5.0); LYMPH % 27.3 % (24.0-44.0); MONO # 1.2 10^3/uL (0.0-0.8); MONO % 12.4 % (2.0-8.0); NEUTROPHILS # 5.4 10^3/uL (1.5-8.5); NEUTROPHILS % 57.1 % (36.0-66.0); PLATELET COUNT, AUTOMATED 163 10^3/uL (150-450)
[2024-12-10 09:40] LABS: C REACTIVE PROTEIN QUANTITATIV 1.12 MG/DL (<1.0); CALCIUM LEVEL 8.2 MG/DL (8.3-10.6); CARBON DIOXIDE LEVEL 21.0 MMOL/L (20-31); CHLORIDE LEVEL 109.0 MMOL/L (98-107); CREATININE FOR GFR 3.14 MG/DL (0.70-1.30); GLOMERULAR FILTRATION RATE 19.0 (>35); MAGNESIUM LEVEL 1.9 MG/DL (1.8-2.4); POTASSIUM SERUM 4.4 MMOL/L (3.5-5.1); SODIUM LEVEL 139.0 MMOL/L (136-145)
[2024-12-10 12:00] VITALS: BP 144/85; TEMP 97.7; O2SAT 98
[2024-12-10 20:33] VITALS: BP 148/82; TEMP 97.9; O2SAT 96
[2024-12-11 03:36] VITALS: BP 151/76; TEMP 97.7; O2SAT 97
[2024-12-11 06:48] LABS: BASO # 0.0 10^3/uL (0.0-0.2); BASO % 0.3 % (0.0-1.0); EOS # 0.1 10^3/uL (0.0-0.5); EOS % 1.5 % (0.0-3.0); LYMPH # 2.5 10^3/uL (1.5-5.0); LYMPH % 28.3 % (24.0-44.0); MONO # 1.4 10^3/uL (0.0-0.8); MONO % 16.0 % (2.0-8.0); NEUTROPHILS # 4.8 10^3/uL (1.5-8.5); NEUTROPHILS % 53.7 % (36.0-66.0); PLATELET COUNT, AUTOMATED 131 10^3/uL (150-450)
[2024-12-11 07:32] LABS: CALCIUM LEVEL 8.0 MG/DL (8.3-10.6); CARBON DIOXIDE LEVEL 20.0 MMOL/L (20-31); CHLORIDE LEVEL 108.0 MMOL/L (98-107); CREATININE FOR GFR 3.07 MG/DL (0.70-1.30); GLOMERULAR FILTRATION RATE 19.6 (>35); MAGNESIUM LEVEL 1.7 MG/DL (1.8-2.4); POTASSIUM SERUM 4.2 MMOL/L (3.5-5.1); SODIUM LEVEL 133.0 MMOL/L (136-145)
[2024-12-11] MEDS: MAG SULF 1GM/100ML (MAG RUN) 1 GM in IV 1 EA IV SCH (08:03)
[2024-12-11] MEDS: SODIUM BICARBONATE 325 MG TAB PO SCH (09:39)
[2024-12-11 12:00] VITALS: BP 148/68; TEMP 97.9; O2SAT 98
[2024-12-11 19:36] VITALS: BP 148/56; TEMP 97.9; O2SAT 99
[2024-12-12 04:11] VITALS: BP 123/54; TEMP 98.4; O2SAT 96
[2024-12-12] MEDS: METOPROLOL SUCC. 25 MG *XL* TAB PO SCH (09:28)
[2024-12-13 04:00] VITALS: BP 147/68; TEMP 97.5; O2SAT 94
[2024-12-13 08:30] VITALS: BP 146/70; TEMP 97.7; O2SAT 97
[2024-12-13 12:00] VITALS: BP 134/71; TEMP 97.3; O2SAT 97
[2024-12-13 20:13] VITALS: BP 166/70; TEMP 97.3; O2SAT 95
[2024-12-14 03:38] VITALS: BP 123/53; TEMP 97.5; O2SAT 95
[2024-12-14 17:20] VITALS: BP 130/62
[2024-12-14 22:00] VITALS: BP 135/68; TEMP 97.5; O2SAT 92
[2024-12-15 03:51] VITALS: BP 125/57; TEMP 97.3; O2SAT 96
[2024-12-15] MEDS ORDERED: SODI650T PO (07:09)
[2024-12-15] MEDS ORDERED: PROT1TAB2 PO (07:10)
[2024-12-15 09:49] VITALS: BP 131/80
== END 2024-12-15 11:05 | disposition home or self-care (01) | DRG 206 ==
LOC: M ED 14:07 → M ED INP 22:28 → M MSPAV 12-07 16:28
PROVIDERS: ADMIT Student in an Organized Health Care Education/Training Program; ATTEND Internal Medicine
DX: J98.8 Other specified respiratory disorders (principal); N18.4 Chronic kidney disease, stage 4 (severe); N17.9 Acute kidney failure, unspecified; J47.9 Bronchiectasis, uncomplicated; I12.9 Hypertensive chronic kidney disease with stage 1 through stage 4 chronic kidney disease, or unspecified chronic kidney disease; E78.5 Hyperlipidemia, unspecified; K21.9 Gastro-esophageal reflux disease without esophagitis; B96.5 Pseudomonas (aeruginosa) (mallei) (pseudomallei) as the cause of diseases classified elsewhere; Z95.1 Presence of aortocoronary bypass graft; M06.9 Rheumatoid arthritis, unspecified; M10.9 Gout, unspecified; D63.1 Anemia in chronic kidney disease; I25.10 Atherosclerotic heart disease of native coronary artery without angina pectoris; K44.9 Diaphragmatic hernia without obstruction or gangrene; Z79.899 Other long term (current) drug therapy; Z79.82 Long term (current) use of aspirin

== ENCOUNTER → 2025-01-22 | Outpatient (CLI) | payer MEDICARE, OTHER ==
[~2025-01-22] MED LIST changes: +PROT1TAB2 PO; +SODI325T9 PO; +SODI650T PO
== END ==
LOC: M PLAIMG 09:53
PROVIDERS: ATTEND Internal Medicine
DX: K86.2 Cyst of pancreas (principal)

== ENCOUNTER → 2025-01-31 | Outpatient (REF) | payer MEDICARE, OTHER | LOC: M SFHCPLAZ 15:10 | PROVIDERS: ATTEND Internal Medicine Infectious Disease | DX: R05.3 Chronic cough (principal); A49.8 Other bacterial infections of unspecified site ==

== ENCOUNTER → 2025-02-04 | Outpatient (REF) | payer MEDICARE, OTHER | LOC: M SFHCPLAZ 12:42 | PROVIDERS: ATTEND Internal Medicine Infectious Disease | DX: R05.3 Chronic cough (principal) ==

== ENCOUNTER → 2025-02-11 | Outpatient (CLI) | payer MEDICARE, OTHER | LOC: M RAD 14:28 | PROVIDERS: ATTEND Internal Medicine Infectious Disease | DX: R05.3 Chronic cough (principal); J47.9 Bronchiectasis, uncomplicated; I51.7 Cardiomegaly; I70.0 Atherosclerosis of aorta; I25.10 Atherosclerotic heart disease of native coronary artery without angina pectoris; K80.20 Calculus of gallbladder without cholecystitis without obstruction ==